=== PATIENT | female | born 1970 | race Hispanic/Latino ===

== ENCOUNTER 2020-08-27 09:42 | Inpatient (IN) | payer BC ==
[~2020-08-27] VITALS: Ht 165.1 cm; Wt 65.9 kg
[2020-08-27] VITALS (12 sets, daily range): BP systolic 86–115; BP diastolic 64–86
[2020-08-27] MEDS ORDERED: ASPIRIN 81 MG CHEW TAB ONE (10:26)
[2020-08-27] MEDS ORDERED: ASPIRIN 81 MG CHEW TAB PO ONE ×2 (10:30→12:15)
[2020-08-27] MEDS ORDERED: DONNATAL/LIDOCAINE/MAALOX 30 ML SUSP PO ONE (10:30)
[2020-08-27] MEDS ORDERED: ONDANSETRON HCL INJ 2MG/ML 2ML 2 MG/ML VIAL IV NR (10:45)
[2020-08-27] MEDS ORDERED: SODIUM CHLORIDE 0.9% 1000ML 1,000 ML IV SCH (10:45)
[2020-08-27] MEDS ORDERED: BELLADONNA ALK/PHENOBARBITAL 5 ML UDC ONE (10:46)
[2020-08-27] MEDS ORDERED: ONDANSETRON HCL INJ 2MG/ML 2ML 2 MG/ML VIAL ONE (10:46)
[2020-08-27] MEDS ORDERED: LIDOCAINE VISC 2% SOLN 15 ML UDC ONE (10:46)
[2020-08-27] MEDS ORDERED: MAGNESIUM/ALUMINUM/SIMETHICONE 30 ML UDC ONE (10:46)
[2020-08-27] MEDS ORDERED: NITROGLYCERIN 2% OINT 1 GM PKT ONE (11:01)
[2020-08-27] MEDS ORDERED: NITROGLYCERIN 2% OINT 1 GM PKT TOP ONE (11:30)
[2020-08-27] MEDS: ENOXAPARIN SODIUM INJ 100 MG/ML SYR SC SCH ×2 (11:35→22:11)
[2020-08-27] MEDS ORDERED: FUROSEMIDE INJ 10 MG/ML 4 ML VIAL IV ONE (11:45)
[2020-08-27] MEDS ORDERED: POTASSIUM CHLORIDE 10MEQ EA PO ONE (11:45)
[2020-08-27] MEDS ORDERED: POTASSIUM CHLORIDE 20 MEQ TAB CR PO ONE (11:58)
[2020-08-27] MEDS ORDERED: FUROSEMIDE INJ 10 MG/ML 4 ML VIAL ONE (11:58)
[2020-08-27] MEDS ORDERED: SODIUM CHLORIDE FLUSH 10 ML SYR INJ PRN (12:15)
[2020-08-27] MEDS ORDERED: ONDANSETRON HCL INJ 2MG/ML 2ML 2 MG/ML VIAL IV PRN (12:15)
[2020-08-27] MEDS ORDERED: SIMETHICONE 80 MG CHEW PO PRN (13:15)
[2020-08-27] MEDS ORDERED: BENZONATATE 100 MG CAP PO PRN (13:15)
[2020-08-27] MEDS ORDERED: POTASSIUM CHLORIDE 20 MEQ TAB CR PO PRN (13:15)
[2020-08-27] MEDS ORDERED: LIDOCAINE 4% PATCH TP PRN (13:15)
[2020-08-27] MEDS ORDERED: DOCUSATE SODIUM 100 MG CAP PO PRN (13:15)
[2020-08-27] MEDS ORDERED: DIPHENHYDRAMINE HCL 25 MG CAP PO PRN (13:15)
[2020-08-27] MEDS ORDERED: DEXTROSE 50% SYRINGE 50 ML IV PRN ×3 (13:15→16:30)
[2020-08-27] MEDS ORDERED: HYDRALAZINE HCL 20 MG/ML VIAL IV PRN (13:15)
[2020-08-27] MEDS ORDERED: ACETAMINOPHEN 325 MG TAB PO PRN (13:15)
[2020-08-27] MEDS: MIDODRINE 2.5 MG TAB PO SCH (14:40)
[2020-08-27] MEDS: FUROSEMIDE INJ 10 MG/ML 4 ML VIAL IV SCH ×2 (14:40→22:11)
[2020-08-27] MEDS: MORPHINE SULFATE INJ 4 MG/ML INJ 1ML IV PRN ×2 (15:33→23:00)
[2020-08-27] MEDS: ONDANSETRON HCL INJ 2MG/ML 2ML 2 MG/ML VIAL IV PRN ×2 (15:34→23:00)
[2020-08-27] MEDS ORDERED: NITROGLYCERIN 2% OINT 1 GM PKT TOP NR (15:45)
[2020-08-27] MEDS: INSULIN REGULAR, HUMAN 100 UNIT/1 ML 3ML VIAL SQ SCH ×2 (16:55→22:13)
[2020-08-27] MEDS ORDERED: MELATONIN 5 MG TABLET PO PRN (21:00)
[2020-08-27] MEDS: ATORVASTATIN 20 MG TAB PO SCH (22:11)
[2020-08-28] VITALS (19 sets, daily range): BP systolic 83–126; BP diastolic 67–98
[2020-08-28 00:22] LABS: CREATINE KINASE MB 99.7 ng/mL (0-5.0)
[2020-08-28 05:03] LABS: BASOPHILS % 0.3 % (0.0-1.0); HEMATOCRIT 35.1 % (34.2-44.1); HEMOGLOBIN 11.9 g/dL (12.0-16.0); LYMPHOCYTES # (AUTO) 0.9 (1.0-3.2); LYMPHOCYTES % 7.7 % (18.0-39.1); MEAN CORPUSCULAR HGB CONC 33.9 g/dL (31-35); MEAN CORPUSCULAR VOLUME 82.6 fL (81-99); MONOCYTES # (AUTO) 0.8 (0.2-0.8); MONOCYTES % 6.9 % (4.4-11.3); NEUTROPHILS # (AUTO) 9.8 (2.1-6.9); NEUTROPHILS % 84.7 % (38.7-80.0); PLATELET COUNT 367 x10e3/uL (140-360); RED BLOOD COUNT 4.25 x10e6/uL (3.6-5.1); RED CELL DISTRIBUTION WIDTH 12.3 % (11.7-14.4)
[2020-08-28 05:29] LABS: ALANINE AMINOTRANSFERASE 23 IU/L (0-55); ALBUMIN/GLOBULIN RATIO 0.9 (0.8-2.0); ALKALINE PHOSPHATASE 73 IU/L (40-150); ANION GAP 16.6 mmol/L (8-16); BLOOD UREA NITROGEN 19 mg/dL (7-26); BUN/CREATININE RATIO 23 (6-25); CALCIUM 8.9 mg/dL (8.4-10.2); CARBON DIOXIDE 23 mmol/L (22-29); CHLORIDE 101 mmol/L (98-107); CREATININE, SERUM 0.81 mg/dL (0.57-1.11); EST GLOMERULAR FILTRATION RATE > 60 ML/MIN (60-); GLUCOSE 306 mg/dL (74-118); MAGNESIUM 1.6 MG/DL (1.3-2.1); POTASSIUM 3.6 mmol/L (3.5-5.1); SODIUM 137 mmol/L (136-145)
[2020-08-28 05:51] LABS: THYROID STIMULATING HORMONE 0.468 uIU/mL (0.350-4.940)
[2020-08-28 05:55] LABS: CHOL/HDL RATIO 6.5 (3.0-3.6)
[2020-08-28] MEDS: NITROGLYCERIN 2% OINT 1 GM PKT TOP SCH ×4 (06:16→15:43)
[2020-08-28] MEDS: FUROSEMIDE INJ 10 MG/ML 4 ML VIAL IV SCH (06:16)
[2020-08-28] MEDS: ONDANSETRON HCL INJ 2MG/ML 2ML 2 MG/ML VIAL IV PRN ×2 (07:06→17:38)
[2020-08-28 07:27] LABS: CREATINE KINASE MB 93.7 ng/mL (0-5.0)
[2020-08-28] MEDS: MIDODRINE 2.5 MG TAB PO SCH ×3 (07:55→15:11)
[2020-08-28] MEDS ORDERED: ASPIRIN 325 MG TAB EC PO SCH (09:00)
[2020-08-28] MEDS: INSULIN REGULAR, HUMAN 100 UNIT/1 ML 3ML VIAL SQ SCH ×2 (09:00→11:30)
[2020-08-28] MEDS: ENOXAPARIN SODIUM INJ 100 MG/ML SYR SC SCH (11:30)
[2020-08-28] MEDS ORDERED: MIDAZOLAM HCL 2 MG/2 ML VIAL ONE (11:31)
[2020-08-28] MEDS ORDERED: FENTANYL CITRATE/PF 100MCG/2 ML INJ ONE (11:31)
[2020-08-28] MEDS ORDERED: SODIUM CHLORIDE 0.9% 1000ML 1,000 ML ONE ×2 (11:32→13:34)
[2020-08-28] MEDS ORDERED: IOPAMIDOL 370 MG/ML 200 ML INFUS..BTL INJ ONE (11:32)
[2020-08-28] MEDS ORDERED: HEPARIN SOD/SOD CHLORIDE 2,000 ML ONE (11:32)
[2020-08-28] MEDS ORDERED: LIDOCAINE HCL 2% LOCAL 20 ML VIAL ONE (11:32)
[2020-08-28 12:10] LABS: CREATINE KINASE MB 49.7 ng/mL (0-5.0)
[2020-08-28] MEDS ORDERED: PHENYLEPHRINE HCL 1% 10 MG/ML VIAL ONE (12:45)
[2020-08-28] MEDS ORDERED: SODIUM CHLORIDE 0.9% 100 ML ONE (12:45)
[2020-08-28] MEDS ORDERED: CLOPIDOGREL BISULFATE 75 MG TAB ONE (14:24)
[2020-08-28] MEDS: INSULIN LISPRO 100 UNIT/1 ML 3ML VIAL SQ SCH ×3 (15:32→21:31)
[2020-08-28] MEDS ORDERED: INSULIN GLARGINE 100 UNITS/ML VIAL SQ SCH (21:00)
[2020-08-28] MEDS: ATORVASTATIN 20 MG TAB PO SCH (21:29)
[2020-08-29] VITALS (13 sets, daily range): BP systolic 96–109; BP diastolic 70–81
[2020-08-29] MEDS: NITROGLYCERIN 2% OINT 1 GM PKT TOP SCH ×3 (06:07→11:01)
[2020-08-29] MEDS: INSULIN LISPRO 100 UNIT/1 ML 3ML VIAL SQ SCH ×7 (07:04→20:03)
[2020-08-29] MEDS: MIDODRINE 2.5 MG TAB PO SCH ×3 (07:09→15:10)
[2020-08-29] MEDS: CLOPIDOGREL BISULFATE 75 MG TAB PO SCH (08:26)
[2020-08-29] MEDS: ASPIRIN 81 MG ENTERIC COATED PO SCH (08:26)
[2020-08-29] MEDS ORDERED: FUROSEMIDE INJ 10 MG/ML 2 ML VIAL IV ONE (09:50)
[2020-08-29] MEDS: ONDANSETRON HCL INJ 2MG/ML 2ML 2 MG/ML VIAL IV PRN ×2 (11:16→20:03)
[2020-08-29] MEDS ORDERED: HYDROCODONE/APAP 5MG-325MG TAB PO PRN (14:45)
[2020-08-29] MEDS: MORPHINE SULFATE INJ 4 MG/ML INJ 1ML IV PRN (15:02)
[2020-08-29] MEDS: PANTOPRAZOLE 40 MG 10ML VIAL IV SCH (15:54)
[2020-08-29] MEDS: ATORVASTATIN 20 MG TAB PO SCH (20:03)
[2020-08-29] MEDS ORDERED: INSULIN GLARGINE 100 UNITS/ML VIAL SQ SCH (21:00)
[2020-08-30] VITALS (7 sets, daily range): BP systolic 92–103; BP diastolic 67–78
[2020-08-30 04:50] LABS: BASOPHILS % 0.2 % (0.0-1.0); EOSINOPHILS % 0.1 % (0.0-6.0); HEMATOCRIT 29.7 % (34.2-44.1); HEMOGLOBIN 9.8 g/dL (12.0-16.0); LYMPHOCYTES # (AUTO) 1.8 (1.0-3.2); LYMPHOCYTES % 17.7 % (18.0-39.1); MEAN CORPUSCULAR HEMOGLOBIN 27.7 pg (28-32); MEAN CORPUSCULAR VOLUME 83.9 fL (81-99); MONOCYTES # (AUTO) 0.8 (0.2-0.8); MONOCYTES % 7.9 % (4.4-11.3); NEUTROPHILS # (AUTO) 7.3 (2.1-6.9); NEUTROPHILS % 73.7 % (38.7-80.0); PLATELET COUNT 349 x10e3/uL (140-360); RED BLOOD COUNT 3.54 x10e6/uL (3.6-5.1); RED CELL DISTRIBUTION WIDTH 12.4 % (11.7-14.4)
[2020-08-30 05:15] LABS: ANION GAP 13.3 mmol/L (8-16); BLOOD UREA NITROGEN 28 mg/dL (7-26); BUN/CREATININE RATIO 42 (6-25); CALCIUM 8.4 mg/dL (8.4-10.2); CARBON DIOXIDE 25 mmol/L (22-29); CHLORIDE 98 mmol/L (98-107); CREATININE, SERUM 0.67 mg/dL (0.57-1.11); EST GLOMERULAR FILTRATION RATE > 60 ML/MIN (60-); GLUCOSE 210 mg/dL (74-118); POTASSIUM 3.3 mmol/L (3.5-5.1); SODIUM 133 mmol/L (136-145)
[2020-08-30 06:55] LABS: FREE T4 (FREE THYROXINE) 1.09 ng/dL (0.8-1.8); THYROID STIMULATING HORMONE 0.262 uIU/mL (0.350-4.940)
[2020-08-30] MEDS: PANTOPRAZOLE 40 MG 10ML VIAL IV SCH ×2 (09:12→16:42)
[2020-08-30] MEDS: CLOPIDOGREL BISULFATE 75 MG TAB PO SCH (09:12)
[2020-08-30] MEDS: ASPIRIN 81 MG ENTERIC COATED PO SCH (09:12)
[2020-08-30] MEDS: MIDODRINE 2.5 MG TAB PO SCH ×2 (09:12→12:10)
[2020-08-30] MEDS: INSULIN LISPRO 100 UNIT/1 ML 3ML VIAL SQ SCH ×7 (09:13→20:04)
[2020-08-30] MEDS ORDERED: POTASSIUM CHLORIDE 20 MEQ TAB CR PO ONE (11:40)
[2020-08-30] MEDS: ONDANSETRON HCL INJ 2MG/ML 2ML 2 MG/ML VIAL IV PRN (15:36)
[2020-08-30] MEDS: MORPHINE SULFATE INJ 4 MG/ML INJ 1ML IV PRN (15:36)
[2020-08-30] MEDS: SUCRALFATE 1 GM/10 ML SUSP NG SCH ×2 (16:42→20:04)
[2020-08-30] MEDS: METOCLOPRAMIDE HCL 10 MG TAB PO SCH (16:50)
[2020-08-30] MEDS: ATORVASTATIN 20 MG TAB PO SCH (20:04)
[2020-08-30] MEDS: INSULIN GLARGINE 100 UNITS/ML VIAL SQ SCH (20:04)
[2020-08-31] VITALS (11 sets, daily range): BP systolic 99–128; BP diastolic 66–81
[2020-08-31 05:57] LABS: BASOPHILS % 0.1 % (0.0-1.0); EOSINOPHILS % 0.6 % (0.0-6.0); HEMOGLOBIN 9.7 g/dL (12.0-16.0); LYMPHOCYTES # (AUTO) 1.4 (1.0-3.2); LYMPHOCYTES % 21.1 % (18.0-39.1); MEAN CORPUSCULAR HEMOGLOBIN 28.6 pg (28-32); MEAN CORPUSCULAR HGB CONC 33.4 g/dL (31-35); MEAN CORPUSCULAR VOLUME 85.5 fL (81-99); MONOCYTES # (AUTO) 0.7 (0.2-0.8); MONOCYTES % 10.2 % (4.4-11.3); NEUTROPHILS # (AUTO) 4.6 (2.1-6.9); NEUTROPHILS % 67.7 % (38.7-80.0); PLATELET COUNT 355 x10e3/uL (140-360); RED BLOOD COUNT 3.39 x10e6/uL (3.6-5.1); RED CELL DISTRIBUTION WIDTH 12.3 % (11.7-14.4)
[2020-08-31 06:18] LABS: ANION GAP 12.9 mmol/L (8-16); BLOOD UREA NITROGEN 26 mg/dL (7-26); BUN/CREATININE RATIO 40 (6-25); CALCIUM 8.3 mg/dL (8.4-10.2); CARBON DIOXIDE 27 mmol/L (22-29); CHLORIDE 98 mmol/L (98-107); CREATININE, SERUM 0.65 mg/dL (0.57-1.11); EST GLOMERULAR FILTRATION RATE > 60 ML/MIN (60-); GLUCOSE 137 mg/dL (74-118); POTASSIUM 3.9 mmol/L (3.5-5.1); SODIUM 134 mmol/L (136-145)
[2020-08-31] MEDS: INSULIN LISPRO 100 UNIT/1 ML 3ML VIAL SQ SCH ×7 (07:30→21:00)
[2020-08-31] MEDS: PANTOPRAZOLE 40 MG 10ML VIAL IV SCH ×2 (08:06→16:58)
[2020-08-31] MEDS: ASPIRIN 81 MG ENTERIC COATED PO SCH (08:09)
[2020-08-31] MEDS: METOCLOPRAMIDE HCL 10 MG TAB PO SCH ×3 (08:09→17:00)
[2020-08-31] MEDS: SUCRALFATE 1 GM/10 ML SUSP NG SCH ×4 (08:09→21:46)
[2020-08-31] MEDS: CLOPIDOGREL BISULFATE 75 MG TAB PO SCH (08:09)
[2020-08-31] MEDS ORDERED: FUROSEMIDE INJ 10 MG/ML 4 ML VIAL IV SCH (14:45)
[2020-08-31] MEDS: FUROSEMIDE INJ 10 MG/ML 4 ML VIAL IV SCH ×2 (15:21→21:46)
[2020-08-31] MEDS: INSULIN GLARGINE 100 UNITS/ML VIAL SQ SCH (21:00)
[2020-08-31] MEDS: ATORVASTATIN 20 MG TAB PO SCH (21:46)
[2020-09-01] VITALS (10 sets, daily range): BP systolic 95–108; BP diastolic 68–80
[2020-09-01 06:07] LABS: BASOPHILS % 0.3 % (0.0-1.0); EOSINOPHILS % 0.6 % (0.0-6.0); HEMATOCRIT 28.5 % (34.2-44.1); HEMOGLOBIN 9.7 g/dL (12.0-16.0); LYMPHOCYTES # (AUTO) 1.5 (1.0-3.2); LYMPHOCYTES % 21.6 % (18.0-39.1); MEAN CORPUSCULAR HEMOGLOBIN 28.4 pg (28-32); MEAN CORPUSCULAR VOLUME 83.3 fL (81-99); MONOCYTES # (AUTO) 0.7 (0.2-0.8); MONOCYTES % 10.3 % (4.4-11.3); NEUTROPHILS # (AUTO) 4.7 (2.1-6.9); NEUTROPHILS % 66.9 % (38.7-80.0); PLATELET COUNT 388 x10e3/uL (140-360); RED BLOOD COUNT 3.42 x10e6/uL (3.6-5.1)
[2020-09-01 06:39] LABS: ALANINE AMINOTRANSFERASE 10 IU/L (0-55); ALBUMIN 2.3 g/dL (3.5-5.0); ALBUMIN/GLOBULIN RATIO 0.7 (0.8-2.0); ALKALINE PHOSPHATASE 88 IU/L (40-150); ANION GAP 12.6 mmol/L (8-16); BLOOD UREA NITROGEN 16 mg/dL (7-26); BUN/CREATININE RATIO 25 (6-25); CARBON DIOXIDE 28 mmol/L (22-29); CHLORIDE 94 mmol/L (98-107); CREATININE, SERUM 0.63 mg/dL (0.57-1.11); EST GLOMERULAR FILTRATION RATE > 60 ML/MIN (60-); GLUCOSE 159 mg/dL (74-118); POTASSIUM 3.6 mmol/L (3.5-5.1); SODIUM 131 mmol/L (136-145)
[2020-09-01] MEDS: INSULIN LISPRO 100 UNIT/1 ML 3ML VIAL SQ SCH ×6 (07:30→16:30)
[2020-09-01] MEDS: FUROSEMIDE INJ 10 MG/ML 4 ML VIAL IV SCH (09:16)
[2020-09-01] MEDS: METOCLOPRAMIDE HCL 10 MG TAB PO SCH ×3 (09:18→17:16)
[2020-09-01] MEDS: PANTOPRAZOLE 40 MG 10ML VIAL IV SCH ×2 (09:18→17:16)
[2020-09-01] MEDS: CLOPIDOGREL BISULFATE 75 MG TAB PO SCH (09:19)
[2020-09-01] MEDS: SUCRALFATE 1 GM/10 ML SUSP NG SCH ×3 (09:19→17:16)
[2020-09-01] MEDS: ASPIRIN 81 MG ENTERIC COATED PO SCH (09:19)
[2020-09-01] MEDS ORDERED: LIPITOR20 MG PO (18:54)
[2020-09-01] MEDS ORDERED: PLAVIX75 MG PO (18:54)
[2020-09-01] MEDS ORDERED: ASPIRIN81 MG PO (18:54)
[2020-09-01] MEDS ORDERED: LASIX20 MG PO (18:55)
== END 2020-09-01 21:22 | disposition home or self-care (01) | DRG 246 ==
LOC: FSED 10:25 → ERHOLD 12:26 → ICU 13:49 → MED/SURG3 08-30 23:55
PROVIDERS: ADMIT Internal Medicine; ATTEND Internal Medicine
PROC: 027034Z Dilation of Coronary Artery, One Artery with Drug-eluting Intraluminal Device, Percutaneous Approach (ICD-10-PCS; principal; 2020-08-28)
PROC: 4A023N7 Measurement of Cardiac Sampling and Pressure, Left Heart, Percutaneous Approach (ICD-10-PCS; 2020-08-28)
PROC: B2111ZZ Fluoroscopy of Multiple Coronary Arteries using Low Osmolar Contrast (ICD-10-PCS; 2020-08-28)
PROC: B2151ZZ Fluoroscopy of Left Heart using Low Osmolar Contrast (ICD-10-PCS; 2020-08-28)
DX: I21.4 Non-ST elevation (NSTEMI) myocardial infarction (principal); I50.21 Acute systolic (congestive) heart failure; E11.65 Type 2 diabetes mellitus with hyperglycemia; E78.00 Pure hypercholesterolemia, unspecified; I11.0 Hypertensive heart disease with heart failure; Z20.822 Contact with and (suspected) exposure to COVID-19
CPT/HCPCS: 36415; 71045; 71046; 80048; 80053; 80061; 81003; 81025; 82550; 82553; 82948; 83036; 83690; 83735; 84439; 84443; 84484; 84702; 85025; 85379; 92928; 92929; 93005; 93306; 93458; 96372; 96374; 96375; 99152; 99153; 99284; C1725; C1769; C1874; C1887; J1650; J1815; J1817; J1940; J2001; J2250; J2270; J2370; J2405; J3010; J7030; J7050; Q9967; U0002

== ENCOUNTER 2020-09-28 16:16 | Inpatient (IN) | payer BC ==
[~2020-09-28] VITALS: Ht 165.1 cm; Wt 84.4 kg
[~2020-09-28 16:16] MED LIST: ASPIRIN81 MG PO; LASIX20 MG PO; LIPITOR20 MG PO; PLAVIX75 MG PO
[2020-09-28] MEDS ORDERED: ASPIRIN 81 MG CHEW TAB PO ONE (16:30)
[2020-09-28 16:56] LABS: BASOPHILS % 0.5 % (0.0-1.0); EOSINOPHILS # (AUTO) 0.1 (0.0-0.4); EOSINOPHILS % 1.8 % (0.0-6.0); HEMATOCRIT 34.3 % (34.2-44.1); HEMOGLOBIN 10.5 g/dL (12.0-16.0); LYMPHOCYTES % 15.5 % (18.0-39.1); MEAN CORPUSCULAR HEMOGLOBIN 26.5 pg (28-32); MEAN CORPUSCULAR HGB CONC 30.6 g/dL (31-35); MEAN CORPUSCULAR VOLUME 86.6 fL (81-99); MONOCYTES # (AUTO) 0.4 (0.2-0.8); MONOCYTES % 6.2 % (4.4-11.3); NEUTROPHILS # (AUTO) 4.7 (2.1-6.9); NEUTROPHILS % 75.7 % (38.7-80.0); PLATELET COUNT 419 x10e3/uL (140-360); RED BLOOD COUNT 3.96 x10e6/uL (3.6-5.1); RED CELL DISTRIBUTION WIDTH 13.4 % (11.7-14.4)
[2020-09-28 17:16] LABS: ALANINE AMINOTRANSFERASE 50 IU/L (0-55); ALBUMIN 3.4 g/dL (3.5-5.0); ALBUMIN/GLOBULIN RATIO 1.1 (0.8-2.0); ALKALINE PHOSPHATASE 202 IU/L (40-150); ANION GAP 13.8 mmol/L (8-16); BLOOD UREA NITROGEN 16 mg/dL (7-26); BUN/CREATININE RATIO 29 (6-25); CALCIUM 8.6 mg/dL (8.4-10.2); CARBON DIOXIDE 26 mmol/L (22-29); CHLORIDE 105 mmol/L (98-107); CREATINE KINASE 81 IU/L (29-168); CREATININE, SERUM 0.56 mg/dL (0.57-1.11); EST GLOMERULAR FILTRATION RATE > 60 ML/MIN (60-); GLUCOSE 141 mg/dL (74-118); POTASSIUM 3.8 mmol/L (3.5-5.1); SODIUM 141 mmol/L (136-145)
[2020-09-28] MEDS ORDERED: FUROSEMIDE INJ 10 MG/ML 4 ML VIAL IV ONE (17:45)
[2020-09-28] MEDS ORDERED: MORPHINE SULFATE INJ 2 MG/ML SYR IV PRN (18:30)
[2020-09-28] MEDS ORDERED: ONDANSETRON HCL INJ 2MG/ML 2ML 2 MG/ML VIAL IV PRN (18:30)
[2020-09-28] MEDS ORDERED: HYDRALAZINE HCL 20 MG/ML VIAL IV PRN (18:30)
[2020-09-28] MEDS ORDERED: SODIUM CHLORIDE 0.9% 50ML 50 ML ONE (19:04)
[2020-09-28] MEDS ORDERED: IOPAMIDOL 370 MG/ML 200 ML INFUS..BTL INJ ONE (19:04)
[2020-09-28] MEDS ORDERED: LANTUS 3ML100 UNITS/ SC (20:19)
[2020-09-28] MEDS ORDERED: HUMALOG MI100 UNIT/2 SQ (20:20)
[2020-09-28] MEDS ORDERED: DEXTROSE 50% SYRINGE 50 ML IV PRN (20:30)
[2020-09-28 20:39] VITALS: BP 145/88
[2020-09-28 20:40] VITALS: BP 145/88
[2020-09-28 20:44] VITALS: BP 145/88
[2020-09-28] MEDS: INSULIN LISPRO 100 UNIT/1 ML 3ML VIAL SQ SCH (20:48)
[2020-09-28] MEDS ORDERED: MELATONIN 5 MG TABLET PO PRN (21:00)
[2020-09-28] MEDS ORDERED: INSULIN GLARGINE 100 UNITS/ML VIAL SC SCH (21:00)
[2020-09-28] MEDS: ACETAMINOPHEN 325 MG TAB PO PRN (22:30)
[2020-09-28 23:11] VITALS: BP 102/65
[2020-09-29 00:28] LABS: CREATINE KINASE MB 1.2 ng/mL (0-5.0)
[2020-09-29 04:33] VITALS: BP 102/66
[2020-09-29 04:48] LABS: BASOPHILS % 0.6 % (0.0-1.0); EOSINOPHILS # (AUTO) 0.2 (0.0-0.4); EOSINOPHILS % 3.3 % (0.0-6.0); HEMATOCRIT 31.4 % (34.2-44.1); HEMOGLOBIN 9.7 g/dL (12.0-16.0); LYMPHOCYTES # (AUTO) 1.3 (1.0-3.2); LYMPHOCYTES % 25.6 % (18.0-39.1); MEAN CORPUSCULAR HEMOGLOBIN 27.3 pg (28-32); MEAN CORPUSCULAR HGB CONC 30.9 g/dL (31-35); MEAN CORPUSCULAR VOLUME 88.5 fL (81-99); MONOCYTES # (AUTO) 0.5 (0.2-0.8); MONOCYTES % 9.3 % (4.4-11.3); NEUTROPHILS # (AUTO) 3.2 (2.1-6.9); PLATELET COUNT 360 x10e3/uL (140-360); RED BLOOD COUNT 3.55 x10e6/uL (3.6-5.1); RED CELL DISTRIBUTION WIDTH 13.3 % (11.7-14.4)
[2020-09-29 05:35] LABS: THYROID STIMULATING HORMONE 1.456 uIU/mL (0.350-4.940)
[2020-09-29] MEDS: INSULIN LISPRO 100 UNIT/1 ML 3ML VIAL SQ SCH ×4 (07:30→20:56)
[2020-09-29 08:00] VITALS: BP 108/76
[2020-09-29] MEDS: FUROSEMIDE INJ 10 MG/ML 4 ML VIAL IV SCH ×2 (08:40→16:37)
[2020-09-29] MEDS: ASPIRIN 81 MG CHEW TAB PO SCH (08:40)
[2020-09-29] MEDS: POTASSIUM CHLORIDE 10MEQ EA PO SCH ×2 (08:41→16:37)
[2020-09-29] MEDS: ATORVASTATIN 40 MG TAB PO SCH (08:41)
[2020-09-29] MEDS: CLOPIDOGREL BISULFATE 75 MG TAB PO SCH (08:41)
[2020-09-29 10:02] VITALS: BP 108/76
[2020-09-29 11:06] LABS: CREATINE KINASE MB 1.3 ng/mL (0-5.0)
[2020-09-29] MEDS: ACETAMINOPHEN 325 MG TAB PO PRN (11:25)
[2020-09-29 12:09] VITALS: BP 129/92
[2020-09-29 16:00] VITALS: BP 112/80
[2020-09-29] MEDS: ACETAMINOPHEN/CODEINE 300MG - 30MG TAB PO PRN (16:37)
[2020-09-29 20:00] VITALS: BP 127/88
[2020-09-29] MEDS: INSULIN GLARGINE 100 UNITS/ML VIAL SC SCH (20:55)
[2020-09-30] VITALS (9 sets, daily range): BP systolic 88–112; BP diastolic 58–81
[2020-09-30 06:08] LABS: BASOPHILS % 0.5 % (0.0-1.0); EOSINOPHILS # (AUTO) 0.2 (0.0-0.4); EOSINOPHILS % 3.6 % (0.0-6.0); HEMATOCRIT 32.2 % (34.2-44.1); LYMPHOCYTES # (AUTO) 1.1 (1.0-3.2); LYMPHOCYTES % 19.9 % (18.0-39.1); MEAN CORPUSCULAR HGB CONC 31.1 g/dL (31-35); MONOCYTES # (AUTO) 0.7 (0.2-0.8); MONOCYTES % 12.3 % (4.4-11.3); NEUTROPHILS # (AUTO) 3.6 (2.1-6.9); NEUTROPHILS % 63.5 % (38.7-80.0); PLATELET COUNT 352 x10e3/uL (140-360); RED CELL DISTRIBUTION WIDTH 13.2 % (11.7-14.4)
[2020-09-30 06:35] LABS: BLOOD UREA NITROGEN 17 mg/dL (7-26); BUN/CREATININE RATIO 31 (6-25); CALCIUM 8.2 mg/dL (8.4-10.2); CARBON DIOXIDE 27 mmol/L (22-29); CHLORIDE 104 mmol/L (98-107); CREATININE, SERUM 0.55 mg/dL (0.57-1.11); EST GLOMERULAR FILTRATION RATE > 60 ML/MIN (60-); GLUCOSE 136 mg/dL (74-118); SODIUM 138 mmol/L (136-145)
[2020-09-30] MEDS: INSULIN LISPRO 100 UNIT/1 ML 3ML VIAL SQ SCH ×4 (08:00→20:07)
[2020-09-30] MEDS: POTASSIUM CHLORIDE 10MEQ EA PO SCH ×2 (09:14→17:30)
[2020-09-30] MEDS: FUROSEMIDE INJ 10 MG/ML 4 ML VIAL IV SCH ×4 (09:14→23:24)
[2020-09-30] MEDS: ASPIRIN 81 MG CHEW TAB PO SCH (09:14)
[2020-09-30] MEDS: ATORVASTATIN 40 MG TAB PO SCH (09:14)
[2020-09-30] MEDS: METOPROLOL SUCCINATE 25 MG TAB XL PO SCH (09:15)
[2020-09-30] MEDS: LISINOPRIL 2.5 MG TAB PO SCH (09:15)
[2020-09-30] MEDS: CLOPIDOGREL BISULFATE 75 MG TAB PO SCH (09:15)
[2020-09-30] MEDS ORDERED: FUROSEMIDE INJ 10 MG/ML 2 ML VIAL IV ONE (12:00)
[2020-09-30] MEDS: INSULIN GLARGINE 100 UNITS/ML VIAL SC SCH (20:07)
[2020-09-30] MEDS: ACETAMINOPHEN/CODEINE 300MG - 30MG TAB PO PRN (23:24)
[2020-10-01] VITALS: BP 116/76
[2020-10-01 04:00] VITALS: BP 100/61
[2020-10-01] MEDS: FUROSEMIDE INJ 10 MG/ML 4 ML VIAL IV SCH ×2 (05:36→12:41)
[2020-10-01] MEDS: INSULIN LISPRO 100 UNIT/1 ML 3ML VIAL SQ SCH ×2 (07:30→11:30)
[2020-10-01 07:55] VITALS: BP 110/77
[2020-10-01 08:08] VITALS: BP 110/77
[2020-10-01] MEDS: ASPIRIN 81 MG CHEW TAB PO SCH (11:01)
[2020-10-01] MEDS: POTASSIUM CHLORIDE 10MEQ EA PO SCH (11:02)
[2020-10-01] MEDS: CLOPIDOGREL BISULFATE 75 MG TAB PO SCH (11:02)
[2020-10-01 12:28] VITALS: BP 114/77
[2020-10-01] MEDS ORDERED: LISINOPRIL2.5 MG PO (12:39)
[2020-10-01] MEDS ORDERED: LANTUS 3ML100 UNITS/ SQ (12:39)
[2020-10-01] MEDS ORDERED: TOPROL XL25 MG PO (12:39)
[2020-10-01] MEDS ORDERED: LIPITOR20 MG PO (12:39)
[2020-10-01] MEDS ORDERED: LASIX20 MG PO (12:39)
[2020-10-01] MEDS: LISINOPRIL 2.5 MG TAB PO SCH (12:41)
[2020-10-01] MEDS: METOPROLOL SUCCINATE 25 MG TAB XL PO SCH (12:41)
[2020-10-01] MEDS ORDERED: LASIX40 MG PO (14:23)
[2020-10-01] MEDS ORDERED: ATORVASTATIN 40 MG TAB PO SCH (21:00)
== END 2020-10-01 14:50 | disposition home or self-care (01) | DRG 302 ==
LOC: ER 16:29 → ERHOLD 18:17 → IMCU 19:46 → OBSVTOIN 09-30 12:57
PROVIDERS: ADMIT Internal Medicine; ATTEND Internal Medicine
DX: I25.10 Atherosclerotic heart disease of native coronary artery without angina pectoris (principal); I50.23 Acute on chronic systolic (congestive) heart failure; I11.0 Hypertensive heart disease with heart failure; E66.9 Obesity, unspecified; Z68.31 Body mass index [BMI] 31.0-31.9, adult; Z20.822 Contact with and (suspected) exposure to COVID-19; E78.5 Hyperlipidemia, unspecified; E11.9 Type 2 diabetes mellitus without complications
CPT/HCPCS: 36415; 71260; 80048; 80053; 80061; 82550; 82553; 82948; 83880; 84443; 84484; 85025; 93005; 93306; 99284; G0378; J1815; J1940; J2270; Q9967; U0002

== ENCOUNTER 2021-09-29 18:36 | Emergency (ER) | payer BC, OTHER ==
[~2021-09-29] VITALS: Ht 165.1 cm; Wt 84.4 kg
[~2021-09-29 18:36] MED LIST changes: +HUMALOG MI100 UNIT/2 SQ; +LANTUS 3ML100 UNITS/ SC; +LANTUS 3ML100 UNITS/ SQ; +LASIX40 MG PO; +LISINOPRIL2.5 MG PO; +TOPROL XL25 MG PO
[2021-09-29] MEDS ORDERED: ASPIRIN 81 MG CHEW TAB PO ONE (18:45)
[2021-09-29 18:51] LABS: BASOPHILS % 0.3 % (0.0-1.0); EOSINOPHILS % 0.3 % (0.0-6.0); HEMATOCRIT 35.2 % (34.2-44.1); HEMOGLOBIN 11.6 g/dL (12.0-16.0); LYMPHOCYTES # (AUTO) 1.3 (1.0-3.2); LYMPHOCYTES % 9.1 % (18.0-39.1); MEAN CORPUSCULAR HEMOGLOBIN 28.7 pg (28-32); MEAN CORPUSCULAR VOLUME 87.1 fL (81-99); MONOCYTES # (AUTO) 0.7 (0.2-0.8); NEUTROPHILS # (AUTO) 11.7 (2.1-6.9); PLATELET COUNT 361 x10e3/uL (140-360); RED BLOOD COUNT 4.04 x10e6/uL (3.6-5.1); RED CELL DISTRIBUTION WIDTH 13.3 % (11.7-14.4)
[2021-09-29 19:03] LABS: INR 0.92; PROTHROMBIN TIME 13.2 seconds (11.9-14.5)
[2021-09-29 19:04] LABS: PARTIAL THROMBOPLASTIN TIME 27.8 seconds (23.8-35.5)
[2021-09-29 19:14] LABS: ALBUMIN 3.6 g/dL (3.5-5.0); ANION GAP 11.2 mmol/L (8-16); CALCIUM 9.3 mg/dL (8.4-10.2); CREATININE, SERUM 0.67 mg/dL (0.57-1.11); POTASSIUM 4.2 mmol/L (3.5-5.1)
[2021-09-29 19:20] LABS: CREATINE KINASE MB 21.9 ng/mL (0-5.0)
[2021-09-29] MEDS ORDERED: HEPARIN 25,000 UNIT 800 UNIT in DEXTROSE 5% 250ML 250 ML IV SCH (19:45)
[2021-09-29] MEDS ORDERED: HEPARIN SOD (PORCINE) 5,000 UNIT/ML VIAL IV ONE (19:45)
[2021-09-29] MEDS ORDERED: HEPARIN 25,000 UNIT DRIP IV ONE (19:59)
[2021-09-29] MEDS ORDERED: ONDANSETRON HCL INJ 2MG/ML 2ML 2 MG/ML VIAL IV STA (20:33)
[2021-09-29 23:53] VITALS: BP 98/65
== END 2021-09-29 23:56 | disposition other institution (70) ==
LOC: ER 18:41
DX: I21.4 Non-ST elevation (NSTEMI) myocardial infarction (principal); R07.9 Chest pain, unspecified; E11.65 Type 2 diabetes mellitus with hyperglycemia; I25.2 Old myocardial infarction; Z95.5 Presence of coronary angioplasty implant and graft; Z98.0 Intestinal bypass and anastomosis status; R94.31 Abnormal electrocardiogram [ECG] [EKG]; Z20.822 Contact with and (suspected) exposure to COVID-19
CPT/HCPCS: 36415; 71045; 80053; 82550; 82553; 84484; 85025; 85610; 85730; 93041; 99284; J1644; J2405; U0002